=== PATIENT | male | born 2000 | race African-American/Black ===

== ENCOUNTER 2021-03-12 00:23 | Emergency (ER) | payer BC, SELFPAY ==
[2021-03-12 00:25] VITALS: TEMP 38.8
[2021-03-12] MEDS: SODIUM CHLORIDE 0.9% IV 1,000 ML 999 ML IV CONT (01:19)
[2021-03-12] MEDS: KETOROLAC 30 MG/ML VIAL (*BKC) IV PUSH (01:19)
[2021-03-12 01:33] LABS: Anion Gap 9 mmol/L (8-16); Blood Urea Nitrogen 14 mg/dL (9-20); Calcium 9.1 mg/dL (8.4-10.2); Carbon Dioxide 28 mmol/L (22-30); Chloride 101 mmol/L (98-107); Estimated CRCL calculation 94 ml/min; Estimated Glomerular Filt Rate > 60; Glucose 87 mg/dL (75-110); Potassium 4.5 mmol/L (3.4-5.0); Sodium 138 mmol/L (137-145)
[2021-03-12 01:35] LABS: Basophils Percent Auto 0.3 % (0.2-1.2); Hematocrit 45.1 % (42.0-52.0); Hemoglobin 14.7 g/dL (14.0-18.0); Immature Granulocyte Absolute 0.02 K/mm3 (0.00-0.031); Immature Granulocyte Percent A 0.7 % (0-0.5); Lymphocytes Absolute Auto 0.79 K/mm3 (0.9-3.2); Lymphocytes Percent Auto 26.6 % (18.3-44.2); Mean Corpuscular HGB Conc 32.6 g/dl (32-36); Mean Corpuscular Hemoglobin 28.8 pg (26-34); Mean Corpuscular Volume 88.3 fl (80-100); Mean Platelet Volume 9.8 fl (7.4-10.4); Monocytes Absolute Auto 0.3 K/mm3 (0.1-0.6); Monocytes Percent Auto 8.4 % (2.6-8.5); Neutrophils Absolute Auto 1.9 K/mm3 (1.3-6.7); Platelet Count Result 164 k/mm3 (150-375); Red Blood Count 5.11 M/mm3 (4.6-6.20); Red Cell Distribution Width 12.5 % (11.5-14.5)
[2021-03-12 03:38] LABS: Monoscreen Negative (Negative); Negative Monotest Control Negative (Negative); Positive Monotest Control Positive (Positive)
--- NOTE | 2021-03-12 03:40 | ED.FEVER ---
HPI - Fever General Chief Complaint: Fever Stated Complaint: RANGEL Time Seen by Provider: 03/12/21 00:45 History of Present Illness HPI Narrative: Patient is a 20-year-old male who presents ER with fever and headache. Ongoing over the last couple of days. Originally associate with sinus congestion which has improved with sinus decongestants. No cough or shortness of breath. He is not vaccinated against Covid. No loss of taste or smell. Denies diarrhea/nausea/vomiting. No numbness or tingling to the arms or legs. No neck stiffness. Feels very fatigued. Related Data Allergies Allergy/AdvReac Type Severity Reaction Status Date / Time No Known Allergies Allergy Unverified 05/06/16 16:06 Review of Systems Review of Systems: All systems reviewed & are unremarkable except as noted in HPI and below Constitutional: Constitutional: Reports chills and Reports fever(s) ENT: Reports nasal congestion and Denies sore throat Cardiovascular: Cardiovascular: Denies chest pain and Denies radiating jaw, neck or arm pain Respiratory: Respiratory: Denies cough, Denies dyspnea and Denies wheezing Gastrointestinal: Gastrointestinal: Denies nausea and Denies vomiting PMFSH Past Medical History Medical History (Updated 03/12/21 @ 03:46 by Ren Jaquez MD) Healthy adult male Surgical History Surgical History (Updated 03/12/21 @ 03:44 by Ren Jaquez MD) No history of previous surgery Social History Social History (Updated 03/12/21 @ 03:44 by Ren Jaquez MD) Smoking status: Never smoker Exam Narrative: Exam Narrative: GENERAL: Well-appearing, well-nourished, and in no acute distress. HEAD: Normocephalic, atraumatic. EYES: PERRL and EOMI. ENT: Mucous membranes moist. No pharyngeal erythema or tonsillar hypertrophy/exudate. NECK: Supple. CHEST: Clear to auscultation. No respiratory distress. HEART: Regular rate and rhythm. Normal peripheral pulses. EXTREMITIES: Normal range of motion. No edema. SKIN: Warm, dry, no rash. NEURO: Alert and oriented x3. PSYCH: Normal mood and affect. Course [employer] Physician Supervision Feels markedly improved with Toradol and IV fluid. Informed results. Discharge home. Vital Signs Vital signs: Vital Signs Temperature 102 F H 03/12/21 00:25 Temperature 102 F H 03/12/21 00:25 MDM - Fever Lab Data Result diagrams: 03/12/21 01:10 03/12/21 01:10 Labs: Lab Results 03/12/21 03/12/21 03/12/21 Range/Units 01:10 01:10 01:10 WBC 3.0 L (4.5-10.0) K/mm3 RBC 5.11 (4.6-6.20) M/mm3 Hgb 14.7 (14.0-18.0) g/dL Hct 45.1 (42.0-52.0) % MCV 88.3 (80-100) fl MCH 28.8 (26-34) pg MCHC 32.6 (32-36) g/dl RDW 12.5 (11.5-14.5) % Plt Count 164 (150-375) k/mm3 MPV 9.8 (7.4-10.4) fl Immature Gran % (Auto) 0.7 H (0-0.5) % Neut % (Auto) 64.0 (45.5-73.1) % Lymph % (Auto) 26.6 (18.3-44.2) % [place]roy[place] % (Auto) 8.4 (2.6-8.5) % Eos % (Auto) 0.0 (0-4.4) % Baso % (Auto) 0.3 (0.2-1.2) % Lymph # (Auto) 0.79 L (0.9-3.2) K/mm3 [place] # (Auto) 0.3 (0.1-0.6) K/mm3 Eos # (Auto) 0.0 (0-0.3) K/mm3 Baso # (Auto) 0.0 (0.0-0.1) K/mm3 Abs Immat Gran (auto) 0.02 (0.00-0.031) K/mm3 Absolute Neuts (auto) 1.9 (1.3-6.7) K/mm3 Absolute Nucleated RBC 0.0 (0.0-0.012) K/mm3 Nucleated RBC % 0.0 (0.0-0.2) % Sodium 138 (137-145) mmol/L Potassium 4.5 (3.4-5.0) mmol/L Chloride 101 (98-107) mmol/L Carbon Dioxide 28 (22-30) mmol/L Anion Gap 9 (8-16) mmol/L BUN 14 (9-20) mg/dL Creatinine 1.30 (0.7-1.3) mg/dL Estim Creat Clear Calc 94 ml/min Estimated GFR > 60 (59 - ) Glucose 87 (75-110) mg/dL Calcium 9.1 (8.4-10.2) mg/dL Monoscreen Negative (Negative) Discharge Plan Discharge Clinical Impression: Acute viral syndrome Patient Disposition: Home, Self-Care Condition: Stable Instructions:
[2021-03-12 03:47] VITALS: BP 124/77; PULSE 77; RESP 18; O2SAT 98
[2021-03-12 04:01] VITALS: BP 143/86; PULSE 72; RESP 16; TEMP 37.2; O2SAT 99
== END 2021-03-12 04:02 | disposition home or self-care (01) ==
PROVIDERS: Emergency Provider Emergency Medicine; PCP Pediatrics
DX: B34.9 Viral infection, unspecified (principal)
CPT/HCPCS: 36415; 80048; 85025; 86308; 96361; 96374; 99284; J1885; J7030